=== PATIENT | female | born 1975 | race Caucasian/White ===

== ENCOUNTER 2017-02-28 08:44 | Day surgery (SDC) | payer OTHER ==
[2017-02-27 11:58] VITALS: BMI 23.8
[~2017-02-28 08:44] MED LIST: LIDOCAINE HCL 1%, 10 MG/ML (20ML VIAL) PNB ONE
[2017-02-28] MEDS ORDERED: ISOSULFAN BLUE 10 MG/ML VIAL SQ ONE (09:47)
[2017-02-28] MEDS ORDERED: LIDOCAINE HCL 1%, 10 MG/ML (20ML VIAL) ONE (09:47)
[2017-02-28] MEDS ORDERED: MIDAZOLAM HCL 2 MG/2 ML SINGLE DOSE VIAL ONE (09:56)
[2017-02-28] MEDS ORDERED: PROPOFOL 20 ML ONE (09:56)
[2017-02-28] MEDS ORDERED: LIDOCAINE HCL 1%, 10 MG/ML (20ML VIAL) PNB ONE (10:28)
[2017-02-28] MEDS ORDERED: ONDANSETRON 4 MG/2 ML VIAL IVPUSH PRN (11:04)
[2017-02-28] MEDS ORDERED: ACETAMINOPHEN 325 MG TABLET (FP) PO PRN (11:04)
[2017-02-28] MEDS ORDERED: oxyCODONE HCL 5 MG TABLET PO PRN (11:04)
[2017-02-28] MEDS ORDERED: LACTATED RINGERS SOLUTION 1,000 ML IV SCH (11:15)
--- NOTE | 2017-02-28 12:09 | OP ---
DATE OF OPERATION: 02/28/2017 PREOPERATIVE DIAGNOSIS: Abnormal left breast ultrasound. POSTOPERATIVE DIAGNOSIS: Abnormal left breast ultrasound. PROCEDURE: Left breast ultrasound-guided wire localized excision of mass. SURGEON: Guadalupe Bray MD ANESTHESIA: Local. COMPLICATIONS: None. This is a sterile procedure. INDICATIONS: The patient had a recent left axillary ultrasound that noted a complex cyst versus solid mass in the left axilla that has increased in size, and a biopsy of this is recommended by the radiologist. I had a discussion regarding a needle biopsy versus excision. The decision was to go ahead and with an excisional biopsy. The procedure was discussed with her and all of the questions answered. PROCEDURE IN DETAIL: The patient was brought to [facility] and taken into the operating room. After induction of general anesthesia, an intraoperative ultrasound was performed to localize the lesion of the left axilla with a [place] wire by me. The axilla was then prepped and draped in sterile fashion. The area was anesthetized with 1% lidocaine without epinephrine. An incision was made in the left axilla, and a wire was used as a guide to get down to the area of interest. This was excised en bloc and sent to pathology as an excision of left axillary mass. Hemostasis was assured with electrocautery. The skin was approximated with interrupted 2-0 Vicryl and running 4-0 Prolene. A sterile dressing with Tegaderm and 4 X 4s was applied. She tolerated the procedure well, was extubated on the operating room table, and taken to the operating room in good condition. Harish [id number] MTDD
[2017-02-28 12:37] VITALS: TEMP 98
[2017-02-28 15:18] VITALS: BP 105/58; PULSE 86
--- NOTE | 2017-03-03 17:25 | PATH ---
Surgical Pathology Report Patient Name: RENEA MARTINEZ [facility]. Rec. #: [id number] /Age/Gender: 1975 (Age: 41) / F Account: [id number] Location: [facility] SURGICAL Taken: 02/28/2017 Received: 02/28/2017 Reported: 03/03/2017 Physicians: Guadalupe Bray M.D. Specimen(s) Received LEFT AXILLARY EXCISION OF MASS Clinical History Left axillary node on ultrasound, nonpalpable lesion Ultrasound findings: Probably benign Final Diagnosis AXILLARY MASS, LEFT, EXCISION: NODULAR CYSTIC APOCRINE METAPLASIA AND LYMPHOID TISSUE, FAVOR REACTIVE. Comment: Suggest clinical/radiologic correlation. Electronically Signed Charleen Casey M.D. Gross Description Received in formalin labeled "left axillary excision of mass," is a 2.8 x 1.9 x 0.9 cm irregular, unoriented portion of fibroadipose tissue with a needle localization wire present. There is no skin present. The specimen is inked green and serially sectioned. Sectioning reveals a 0.7 x 0.5 x 0.5 cm smith nodule, possibly consistent with a lymph node. Sales Development Coordinator sections are submitted in 2 cassettes as follows: 1-bisected nodule; 2-additional financial services sales representative tissue. 02/28/201702/28/2017
== END 2017-02-28 14:00 | disposition home or self-care (01) ==
LOC: JASU-SURG 08:44
PROVIDERS: ATTEND Surgery
PROC: 0HBU0ZX Excision of Left Breast, Open Approach, Diagnostic (ICD-10-PCS; principal; 2017-02-28 10:00)
DX: N60.82 Other benign mammary dysplasias of left breast (principal); N63.0 Unspecified lump in unspecified breast
CPT/HCPCS: 84703; 88307-TC; 94760